=== PATIENT | male | born 2000 | race Caucasian/White ===

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

== ENCOUNTER → 2021-09-07 | Outpatient (CLI) | payer OTHER ==
--- NOTE | 2021-09-07 15:23 | NM ---
EXAMINATION TYPE: NM hepatobiliary w EF DATE OF EXAM: 09/07/2021 COMPARISON: NONE HISTORY: Abdominal pain not further specified. Diminished appetite and reflux. TECHNIQUE: After the intravenous administration of 4.2 mCi Tc 99m Mebrofenin hepatobiliary scintigrap hy is performed. Immediate images post injection. FINDINGS: There is satisfactory initial accumulation of tracer by the liver. The gallbladder is visualized wit hin 10 minutes. The small bowel activity is noted within 15 minutes. At one hour 8 ounces of oral e nsure plus is given to mimic CCK and gallbladder ejection fraction is calculated at 32 %, slightly di minished from the normal range. Therefore there is no scintigraphic evidence of cystic or common see e duct obstruction to suggest acute cholecystitis . IMPRESSION: Ejection fraction is 32%, diminished from the normal range. Findings consistent with hypo kinetic response.
== END | disposition home or self-care (01) ==
LOC: RADNMMAIN 12:59
PROVIDERS: ATTEND Family Medicine
DX: R10.84 Generalized abdominal pain (principal)
CPT/HCPCS: 78226; A9537